=== PATIENT | male | born 1995 | race Caucasian/White ===

== ENCOUNTER 2016-06-29 23:49 | Emergency (ER) | payer OTHER ==
[~2016-06-29] VITALS: Ht 182.9 cm; Wt 80.3 kg
[2016-06-29 23:52] VITALS: TEMP 36.3; Ht 182.9 cm; Wt 80.3 kg
[2016-06-30] MEDS ORDERED: LORAZEPAM 1 MG TAB SL STA (00:18)
[2016-06-30] MEDS ORDERED: DiphenhydrAMINE HCL 50 MG/ML VIAL IV STA (00:18)
--- NOTE | 2016-06-30 00:28 | EMERGENCY ROOM VISIT NOTE ---
History Report prepared by Mat: Basim Pate Under the Supervision of: Dr. Nina Duong M.D. First contact with patient: 00:02 Chief Complaint: OTHER COMPLAINT Stated Complaint: COTTON MOUTH,JITTERS,THROAT CLOSING,DIFFICULTY MOLINA History of Present Illness The patient is a 20 year old male who presents to the Emergency Room with concerns over a possible reaction after smoking marijuana this evening. He smoked the marijuana at 2230, two hours prior to arrival. The patient is currently experience twitching and shaking in his hands and arms and is having difficulty talking. He also complains of numbness in his hands. He notes that he smokes marijuana once to twice per month. The patient denies any other drug use and does not take any daily medications. 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 Review of Systems See HPI for pertinent positives & negatives. A total of 10 systems reviewed and were otherwise negative. Past Medical & Surgical Patient denies any significant past medical/surgical histories. Family History Patient denies any family histories. Social History Smoking Status: Never Smoker Drug Use: none Marital Status: single Housing Status: lives with roommate Occupation Status: Compositence student Current/Historical Medications No Active Prescriptions or Reported Meds Allergies Coded Allergies: No Known Allergies (Unverified , 06/30/16) Physical Exam Vital Signs Date Time Temp Pulse Resp B/P Pulse Ox O2 Delivery O2 Flow Rate FiO2 06/30/16 02:16 104 18 115/63 97 Room Air 06/30/16 01:22 98 16 136/66 98 Room Air 06/30/16 00:37 120 06/29/16 23:52 36.3 166 18 171/75 100 Room Air Physical Exam Vital signs reviewed. General: He is agitated and anxious. Pressured speech with a difficulty articulating. HEENT: No scleral icterus, PERRLA, neck supple. Atraumatic. No tongue swelling , no posterior oropharyngeal swelling noted. Cardiovascular: Tachycardiac rate with normal rhythm, no extra sounds. Pulmonary: Clear to auscultation bilaterally, normal work of breathing. Abdomen: Soft, nontender, nondistended, positive bowel sounds. Musculoskeletal: Atraumatic, no peripheral edema. Neurologic: Patient awake alert and oriented x 3, full strength in all 4 extremities. Cranial nerves 2 through 12 grossly intact. Skin: Warm, dry, no rash Medical Decision & Procedures Laboratory Results 06/30/16 00:27 Red Blood Count 5.25, Mean Corpuscular Volume 86.7, Mean Corpuscular Hemoglobin 31.4, Mean Corpuscular Hemoglobin Concent 36.3, Mean Platelet Volume 9.2, Neutrophils (%) (Auto) 63.2, Lymphocytes (%) (Auto) 30.6, Monocytes (%) (Auto) 5.6, Eosinophils (%) (Auto) 0.2, Basophils (%) (Auto) 0.2, Neutrophils # (Auto) 7.87, Lymphocytes # (Auto) 3.80, Monocytes # (Auto) 0.70, Eosinophils # (Auto) 0.02, Basophils # (Auto) 0.02 06/30/16 00:27 Test 06/30/16 00:27 06/30/16 00:30 White Blood Count 12.43 K/uL (4.8-10.8) Red Blood Count 5.25 M/uL (4.7-6.1) Hemoglobin 16.5 g/dL (14.0-18.0) Hematocrit 45.5 % (42-52) Mean Corpuscular Volume 86.7 fL (80-100) Mean Corpuscular Hemoglobin 31.4 pg (25-34) Mean Corpuscular Hemoglobin Concent 36.3 g/dl (32-36) Platelet Count 251 K/uL (130-400) Mean Platelet Volume 9.2 fL (7.4-10.4) Neutrophils (%) (Auto) 63.2 % Lymphocytes (%) (Auto) 30.6 % Monocytes (%) (Auto) 5.6 % Eosinophils (%) (Auto) 0.2 % Basophils (%) (Auto) 0.2 % Neutrophils # (Auto) 7.87 K/uL (1.4-6.5) Lymphocytes # (Auto) 3.80 K/uL (1.2-3.4) Monocytes # (Auto) 0.70 K/uL (0.11-0.59) Eosinophils # (Auto) 0.02 K/uL (0-0.5) Basophils # (Auto) 0.02 K/uL (0-0.2) RDW Standard Deviation 40.1 fL (36.4-46.3) RDW Coefficient of Variation 12.6 % (11.5-14.5) Immature Granulocyte % (Auto) 0.2 % Immature Granulocyte # (Auto) 0.02 K/uL (0.00-0.02) Anion Gap 11.0 mmol/L (3-11) Est Creatinine Clear Calc Drug Dose 118.6 ml/min Estimated GFR () 112.2 Estimated GFR (Non- 96.8 BUN/Creatinine Ratio 16.3 (10-20) Calcium Level 9.4 mg/dl (8.5-10.1) Magnesium Level 2.1 mg/dl (1.8-2.4) Total Bilirubin 0.5 mg/dl (0.2-1) Direct Bilirubin < 0.1 mg/dl (0-0.2) Aspartate Amino Transf (AST/SGOT) 13 U/L (15-37) Alanine Aminotransferase (ALT/SGPT) 23 U/L (12-78) Alkaline Phosphatase 77 U/L (45-117) Total Protein 8.6 gm/dl (6.4-8.2) Albumin 4.6 gm/dl (3.4-5.0) Salicylates Level < 1.7 mg/dl (2.8-20) Acetaminophen Level < 2 ug/ml (10-30) Ethyl Alcohol mg/dL < 3.0 mg/dl (0-3) Urine Color YELLOW Urine Appearance CLEAR (CLEAR) Urine pH 6.5 (4.5-7.5) Urine Specific [place] 1.030 (1.000-1.030) Urine Protein 2+ (NEG) Urine Glucose (UA) NEG (NEG) Urine Ketones NEG (NEG) Urine Occult Blood NEG (NEG) Urine Nitrite NEG (NEG) Urine Bilirubin NEG (NEG) Urine Urobilinogen NEG (NEG) Urine Leukocyte Esterase NEG (NEG) Urine WBC (Auto) 1-5 /hpf (0-5) Urine RBC (Auto) 0-4 /hpf (0-4) Urine Hyaline Casts (Auto) 5-10 /lpf (0-5) Urine Epithelial Cells (Auto) 20-30 /lpf (0-5) Urine Bacteria (Auto) NEG (NEG) Urine Opiates Screen NEG (NEG) Urine Methadone, Qualitative NEG (NEG) Urine Barbiturates NEG (NEG) Urine Phencyclidine (PCP) Level NEG (NEG) Ur Amphetamine/Methamphetamine NEG (NEG) MDMA (Ecstasy) Screen NEG (NEG) Urine Benzodiazepines Screen NEG (NEG) Urine Cocaine Metabolite NEG (NEG) Urine Marijuana (THC) NEG (NEG) Laboratory results per my review. Medications Administered Medications (Trade) Dose Ordered Sig/Juana Route Start Time Stop Time Status Last Admin Dose Admin Lorazepam (Ativan Tab) 1 mg NOW STAT SL 06/30/16 00:18 06/30/16 00:20 DC 06/30/16 00:33 1 MG Diphenhydramine HCl (Benadryl Inj) 25 mg NOW STAT IV 06/30/16 00:18 06/30/16 00:20 DC 06/30/16 00:33 25 MG ECG Indication: toxicologic Rate (beats per minute): 129 Rhythm: sinus tachycardia Findings: nonspecific-ST abn, no ectopy ED Course 0018: Past medical records reviewed. The patient was evaluated in room A3. A complete history and physical examination was performed. 0018: Ordered Benadryl 25 mg IV, Ativan 1 mg SL. 0158: Upon reevaluation, the patient appeared to have improvement of his symptoms. I discussed findings with him. He verbalized agreement of the treatment plan. The patient was discharged home. Medical Decision Differential diagnosis: Etiologies such as mood disorder, infection, hypoglycemia, electrolyte abnormalities, cardiac sources, intracerebral event, toxicologic, neurologic, as well as others were entertained. This patient was evaluated and appeared to be agitated and hyperstimulated. IV access was obtained and laboratory work was drawn. The patient was placed on the parking lot chauffeur and found to be in a normal sinus rhythm. He was medicated with 1 mg of IV Ativan and 25 mg of IV Benadryl for his agitation. Patient's laboratory work is fairly unrevealing. I suspect the patient's marijuana was contaminated with another substance. After the above medications and IV hydration, the patient was able to follow asleep and his agitation subsided. He was discharged to the care of her friend and will follow-up with his physician for reevaluation this week. He will return to the ER for worsening of symptoms or any medical concerns. Impression Primary Impression: Substance abuse Scribe Attestation The scribe's documentation has been prepared under my direction and personally reviewed by me in its entirety. I confirm that the note above accurately reflects all work, treatment, procedures, and medical decision making performed by me. Departure Information Dispostion Home / Self-Care Prescriptions No Active Prescriptions or Reported Meds Referrals No Doctor, Assigned (PCP) Forms HOME CARE DOCUMENTATION FORM, IMPORTANT VISIT INFORMATION, WORK / SCHOOL INSTRUCTIONS Patient Instructions My [facility] Additional Instructions Diagnosis: Substance abuse Please avoid illicit substances such as marijuana. Please drink plenty of clear fluids. Benadryl 25 to 50 mg every 6 hours as needed for recurrent symptoms. Follow-up with your physician this week if symptoms persist. Return to the ER for worsening of symptoms or any medical concerns.
[2016-06-30 00:41] LABS: BASO % 0.2 %; BASO ABS # 0.02 K/uL (0-0.2); COMPLETE YES; EOS % 0.2 %; HEMATOCRIT 45.5 % (42-52); IG% 0.2 %; LYMPH % 30.6 %; MEAN CELL VOLUME 86.7 fL (80-100); MEAN CORPUSCULAR HEMOGLOBIN 31.4 pg (25-34); MEAN CORPUSCULAR HGB CONC 36.3 g/dl (32-36); MEAN PLATELET VOLUME 9.2 fL (7.4-10.4); MONO % 5.6 %; NEUT % 63.2 %; PLATELET COUNT 251 K/uL (130-400); RED BLOOD COUNT 5.25 M/uL (4.7-6.1); WHITE BLOOD COUNT 12.43 K/uL (4.8-10.8)
[2016-06-30 00:47] LABS: URINE APPEARANCE CLEAR (CLEAR); URINE BILIRUBIN NEG (NEG); URINE COLOR YELLOW; URINE EPITHELIAL CELL AUTO 20-30 /lpf (0-5); URINE NITRITE NEG (NEG); URINE PH 6.5 (4.5-7.5); UROBILINOGEN NEG (NEG); ZZUR CULT IF INDIC CLEAN CATCH NO
[2016-06-30 01:01] LABS: MANUAL MICROSCOPIC REQUIRED? NO; REVIEW REQ? NO
[2016-06-30 01:02] LABS: ALT/SGPT 23 U/L (12-78); AST/SGOT 13 U/L (15-37); BLOOD UREA NITROGEN 18 mg/dl (7-18); BUN/CREATININE RATIO 16.3 (10-20); CALCIUM 9.4 mg/dl (8.5-10.1); CARBON DIOXIDE 28 mmol/L (21-32); CHLORIDE 103 mmol/L (98-107); GLUCOSE 136 mg/dl (70-99); MAGNESIUM 2.1 mg/dl (1.8-2.4); POTASSIUM 3.2 mmol/L (3.5-5.1); SODIUM 142 mmol/L (136-145)
[2016-06-30 01:04] LABS: ALKALINE PHOSPHATASE 77 U/L (45-117)
[2016-06-30 01:07] LABS: ACETAMINOPHEN < 2 ug/ml (10-30)
[2016-06-30 01:15] LABS: BENZODIAZEPINE, URINE NEG (NEG); COCAINE,URINE NEG (NEG); PHENCYCLIDINE, URINE NEG (NEG)
[2016-06-30 02:16] VITALS: BP 115/63; PULSE 104; O2SAT 97
== END 2016-06-30 02:28 | disposition home or self-care (01) ==
LOC: C.EDB 23:50 → C.EDA 06-30 02:28
DX: F19.10 Other psychoactive substance abuse, uncomplicated (principal); R00.0 Tachycardia, unspecified